=== PATIENT | male | born 1995 | race African-American/Black ===

== ENCOUNTER 2017-04-25 10:49 | Inpatient (IN) | payer OTHER ==
[2017-04-25 10:57] VITALS: BMI 25.0
--- NOTE | 2017-04-25 11:51 | PDOC ---
History of Present Illness - General Chief Complaint: Abscess Boil Stated Complaint: LEAKING CYST Time Seen by Provider: 04/25/17 11:36 History Source: Patient Exam Limitations: No Limitations - History of Present Illness Initial Comments: 04/25/17 12:17 21 yr male history of sickle cell disease with tender abscess to the right outer calf for 1 week getting larger and more painful. Pt was seen at urgent care and placed on keflex and bactrim. Pt on day 3 of bactrim, with no improvement. area is warm, tender and swollen. no fever no chills denies history of MRSA neg nausea. PMD: [facility]. 04/25/17 12:40 04/25/17 12:56 Severity: Yes: moderate Location: reports: extremities (right lateral calf ) Past History - Past Medical History Allergies/Adverse Reactions: Allergies Allergy/AdvReac Type Severity Reaction Status Date / Time No Known Allergies Allergy Verified 04/25/17 10:57 Home Medications: Ambulatory Orders Ibuprofen [Motrin -] 600 mg PO QID PRN 04/25/17 Sulfamethoxazole/Trimethoprim [Bactrim Ds -] 1 tab PO BID 04/25/17 Anemia: Yes (sickel cell) COPD: No - Suicide/Smoking/Psychosocial Hx Smoking History: Current some day smoker Number of Cigarettes Smoked Daily: 1 Information on smoking cessation initiated: No Substance Use Type: Marijuana *Physical Exam - Vital Signs Last Vital Signs Temp Pulse Resp BP Pulse Ox 98.1 F 66 18 133/71 100 04/25/17 10:52 04/25/17 10:52 04/25/17 10:52 04/25/17 10:52 04/25/17 10:52 - Physical Exam General Appearance: Yes: Nourished, Appropriately Dressed HEENT: positive: EOMI, ESTUARDO Neck: negative: Tender Respiratory/Chest: positive: Lungs Clear, Normal Breath Sounds. negative: Chest Tender Gastrointestinal/Abdominal: positive: Normal Bowel Sounds, Soft Extremity: positive: Normal Capillary Refill, Normal Range of Motion, Tender, Swelling, Inflammation (right lateral calf with indurated 3sgr5po abscess with 1cm open oozing red wound in the center, surrounding warmth ) Integumentary: positive: Dry Neurologic: positive: Fully Oriented, Alert, Normal Mood/Affect, Normal Response , Motor Strength 5/5 ED Treatment Course - LABORATORY CBC & Chemistry Diagram: 04/25/17 12:50 04/25/17 12:50 Medical Decision Making - Medical Decision Making 04/25/17 12:27 cc: abscess/wound to right lower leg for one week on keflex and bactrim with no improvement, getting worse no fever no chills no history of MRSA or previous abscess pt states the area started as "three adkins pimples" one week ago and has progressivley got worse will check labs, toradol for pain , IVAB pt with history of SCD , failed outpatient antibiotics will admit for IVAb possible surgical consult (US of leg to r/o abscess) case discussed with ER attending who agrees with plan of treatment 04/25/17 12:56 04/25/17 13:58 US reviewed no abscess collection will admit to hospitalist for failed outpatient therapy, sickle cell disease microblog done to hospitalist 04/25/17 14:27 *DC/Admit/Observation/Transfer Diagnosis at time of Disposition: Cellulitis and abscess of leg - Discharge Dispostion Condition at time of disposition: Good Admit: Yes - Referrals - Patient Instructions - Post Discharge Activity
[2017-04-25] MEDS ORDERED: KETOROLAC TROMETHAMINE 30 MG/1 ML VIAL IVPUSH ONE (12:29)
[2017-04-25] MEDS ORDERED: KETOROLAC TROMETHAMINE 30 MG/1 ML VIAL ONE (12:44)
[2017-04-25] MEDS ORDERED: VANCOMYCIN 1,000 MG in DEXTROSE 5%-WATER - 250 ML IVPB ONE (12:55)
[2017-04-25 13:02] LABS: BASO % 0.4 % (0-2.0); EOS % 4.7 % (0-4.5); HEMATOCRIT 39.2 % (35.4-49); HEMOGLOBIN 12.6 GM/dL (11.7-16.9); LYMPH % 16.2 % (8-40); MCH 23.2 pg (25.7-33.7); MCHC 32.1 g/dl (32.0-35.9); MEAN CELL VOLUME 72.3 fl (80-96); MEAN PLT VOLUME 11.4 fl (7.5-11.1); MONO % 5.4 % (3.8-10.2); NEUT % 73.3 % (42.8-82.8); PLATELET COUNT 150 K/MM3 (134-434); RBC 5.43 M/mm3 (4.00-5.60); RDW 17.1 % (11.9-15.9); WHITE BLOOD COUNT 8.3 K/mm3 (4.0-10.0)
[2017-04-25] MEDS ORDERED: VANCOMYCIN 1 GRAM (PRE-DOCKED) 1,000 MG/250 ML BAG IVPB ONE (13:10)
[2017-04-25 13:29] LABS: ALBUMIN 4.2 g/dl (3.4-5.0); ALK PHOS 50 U/L (45-117); ANION GAP 5 (8-16); BILIRUBIN,TOTAL 0.6 mg/dL (0.2-1.0); BLOOD UREA NITROGEN 8 mg/dL (7-18); CALCIUM 9.2 mg/dL (8.5-10.1); CHLORIDE 108 mmol/L (98-107); CO2 29 mmol/L (21-32); CREATININE 1.1 mg/dL (0.7-1.3); GLUCOSE,RANDOM 78 mg/dL (74-106); POTASSIUM 4.9 mmol/L (3.5-5.1); SGOT/AST 26 U/L (15-37); SGPT/ALT 26 U/L (12-78); SODIUM 142 mmol/L (136-145); TOT PROT 6.8 g/dl (6.4-8.2)
--- NOTE | 2017-04-25 14:27 | HP ---
CHIEF COMPLAINT: R calf abscess PCP: [facility] HISTORY OF PRESENT ILLNESS: 21 yo man w/ pmh of sickle cell disease who presents with worsening, painful abscess of R lateral calf of one week duration. Pt states he first noted a small pimple on the lateral aspect of his R calf one week ago. Pt endorses worsening local edema and tenderness in the area and went to urgent care, where he was diagnosed with suspected cellulitis and started on keflex. Pt endorses continued worsening of inflammation and swelling focally and returned to urgent care where he was started on Bactrim. Pt endorses no improvement and over the next day, w/ worsening local pain and swelling. Per patient, wound began draining bloody exudate due to friction from his pants while at work yesterday. Pt presented to ED due to no improvement on oral abx. He denies local trauma to area, prior hx of skin/soft tissue infections and no other rashes or skin lesions. Denies fever/chills, cough, SOB, CP, Ab pain, diarrhea, dysuria, throat pain, nasal congestion, peripheral numbness and weakness. No sick contacts. No recent hospitalizations. Pt recently sick in February 2017 with flu. ER course was notable for: (1)No fever, WBC (2)Wound cultures sent (3)Vanco x1 Recent Travel: None PAST MEDICAL HISTORY: Sickle cell anemia; no documentation, per patient; Most recent crisis in fall of last years, presents with BL leg pain; has never received blood transfusion; PAST SURGICAL HISTORY: Umbilical hernia reduction Social History: Smoking: Current smoker, intermittent; smoke 1 cigarettes per day on average Alcohol: Socially Drugs: Marijuana Family History: Father with asthma, SS trait; mother with SS trait; Grandmother with unspecific kidney dz; two siblings with SS trait, one with SS dz Allergies No Known Allergies Allergy (Verified 04/25/17 10:57) HOME MEDICATIONS: Home Medications Medication Instructions Recorded Ibuprofen [Motrin -] 600 mg PO QID PRN 04/25/17 Sulfamethoxazole/Trimethoprim 1 tab PO BID 04/25/17 [Bactrim Ds -] REVIEW OF SYSTEMS CONSTITUTIONAL: Absent: fever, chills, diaphoresis, generalized weakness, malaise, loss of appetite, weight change HEENT: Absent: rhinorrhea, nasal congestion, throat pain, throat swelling, difficulty swallowing, mouth swelling, ear pain, eye pain, visual changes CARDIOVASCULAR: Absent: chest pain, syncope, palpitations, irregular heart rate, lightheadedness , peripheral edema RESPIRATORY: Absent: cough, shortness of breath, dyspnea with exertion, orthopnea, wheezing, stridor, hemoptysis GASTROINTESTINAL: Absent: abdominal pain, abdominal distension, nausea, vomiting, diarrhea, constipation, melena, hematochezia GENITOURINARY: Absent: dysuria, frequency, urgency, hesitancy, hematuria, flank pain, genital pain MUSCULOSKELETAL: Absent: myalgia, arthralgia, joint swelling, back pain, neck pain SKIN: Abscess on R calf Absent: rash, itching, pallor HEMATOLOGIC/IMMUNOLOGIC: Absent: easy bleeding, easy bruising, lymphadenopathy, frequent infections ENDOCRINE: Absent: unexplained weight gain, unexplained weight loss, heat intolerance, cold intolerance NEUROLOGIC: Absent: headache, focal weakness or paresthesias, dizziness, unsteady gait, seizure, mental status changes, bladder or bowel incontinence PSYCHIATRIC: Absent: anxiety, depression, suicidal or homicidal ideation, hallucinations. PHYSICAL EXAMINATION Vital Signs - 24 hr 04/25/17 10:52 Temperature 98.1 F Pulse Rate 66 Respiratory 18 Rate Blood Pressure 133/71 O2 Sat by Pulse 100 Oximetry (%) GENERAL: Young man, Awake, alert, and fully oriented, in no acute distress. HEAD: Normal with no signs of trauma. EYES: Pupils equal, round and reactive to light, extraocular movements intact, sclera anicteric, conjunctiva clear. No lid lag. EARS, NOSE, THROAT: Ears normal, nares patent, oropharynx clear without exudates. Moist mucous membranes. NECK: Normal range of motion, supple without lymphadenopathy, JVD, or masses. LUNGS: Breath sounds equal, clear to auscultation bilaterally. No wheezes, and no crackles. No accessory muscle use. HEART: Regular rate and rhythm, normal S1 and S2 without murmur, rub or gallop. ABDOMEN: Soft, nontender, not distended, normoactive bowel sounds, no guarding, no rebound, no masses. MUSCULOSKELETAL: No bony deformities or tenderness. No CVA tenderness. UPPER EXTREMITIES: 2+ pulses, warm, well-perfused. No cyanosis. No clubbing. No peripheral edema. No lesions or rashes appreciated. LOWER EXTREMITIES: 4x4 cm indurated lesion on lateral aspect of mid-calf w/ central open ulcer, with hematogenous/purulent base. Mild tender to palpation along ventral aspect. No significant drainage or purulence noted. No area of fluctuance appreciable. 2+ pulses, warm, well-perfused. NEUROLOGICAL: Cranial nerves II-XII intact. Normal speech. Gait not evaluated. 5/5 strength grossly in all extremities. No sensory deficits noted in all 4 extremities. PSYCHIATRIC: Cooperative. Good eye contact. Appropriate mood and affect. SKIN: Warm, dry, normal turgor, normal capillary refill. R lateral calf lesions as noted above. No other lesions appreciated. Laboratory Results - last 24 hr CBC, BMP 04/25/17 12:50 04/25/17 12:50 04/25/17 04/25/17 12:50 12:50 WBC 8.3 RBC 5.43 Hgb 12.6 Hct 39.2 MCV 72.3 L MCH 23.2 L MCHC 32.1 RDW 17.1 H Plt Count 150 MPV 11.4 H Neutrophils % 73.3 Lymphocytes % 16.2 Monocytes % 5.4 Eosinophils % 4.7 H Basophils % 0.4 Sodium 142 Potassium 4.9 Chloride 108 H Carbon Dioxide 29 Anion Gap 5 L BUN 8 Creatinine 1.1 Creat Clearance w eGFR > 60 Random Glucose 78 Calcium 9.2 Total Bilirubin 0.6 AST 26 ALT 26 Alkaline Phosphatase 50 Total Protein 6.8 Albumin 4.2 Wound, blood cultures pending R Leg U/S 04/25 - Impression: Heterogeneous echotexture in the subcutaneous fat of the right lower leg as described above may be phlegmon. No evidence of abscess/drainable collection at this time. ASSESSMENT/PLAN: 21 yo man w/ pmh of sickle cell disease who presents with worsening, painful abscess of R lateral calf of one week duration. #R calf cellulitis/abscess - No wbc count, fevers; no evidence of fluid collection on u/s; gram stain of wound + for gram positive cocci in clusters - f/u wound cultures, blood cultures - Unasyn IV 1.5 mg q6h and clindamycin 600mg IV q8h - Toradol IV q6h for pain control - If lesion worsens with evidence of abscess foramtion, consult general surgery , ID - Trend WBC, fever curve - PO hydration - Vitals q4h #Sickle Cell dz - Mother, Father carriers per pt - Daily CBC - not currently in active crisis - outpt management #nicotine abuse - counseling regarding smoking cessation PPX HSQ Early ambulation FEN PO hydration Daily BMPs Regular diet Plan to be discussed with attending, Dr. Jimena Gerardo, PGY1 Visit type - Emergency Visit Emergency Visit: Yes ED Registration Date: 04/25/17 Care time: The patient presented to the Emergency Department on the above date and was hospitalized for further evaluation of their emergent condition. - New Patient This patient is new to me today: Yes Date on this admission: 04/25/17 - Critical Care Critical Care patient: No
--- NOTE | 2017-04-25 15:59 | PN ---
Teaching Attending Note Name of Resident: Ephraim Gerardo ATTENDING PHYSICIAN STATEMENT I saw and evaluated the patient. I reviewed the resident's note and discussed the case with the resident. I agree with the resident's findings and plan as documented. SUBJECTIVE:21 yo M with H sickle cell disease/trait presenting with worsening RLE infection. started out as a pimple on the leg that progressively worsened and started draining. he went to urgent care center and started on keflex which he took for a week. it did not full resolve and was started on bactrim 3 days ago. states the redness and swelling went down but was more painful today at work which prompted him to the Er. denies CP, SOB, fever, chills, rigors, N/V/C/ D, denies any trauma to the leg, denies manipulating the area at all or sticking something into the lesion to drain it. no previous episodes, does not shave his legs. was hospitalized once in the past for leg cramps OBJECTIVE: Last Vital Signs Temp Pulse Resp BP Pulse Ox 98.5 F 56 L 16 129/71 100 04/25/17 15:13 04/25/17 15:13 04/25/17 15:13 04/25/17 15:13 04/25/17 15:13 General NAD CV S1 S2 RRR no murmur/rub/gallop Lungs CTA B/L no wheezing/rales/rhonchi Abdomen soft NT/ND Extremities RLE 1cm ulcer with serous drainage, no fluctuance, no erythema or warmth. some pedal edema ASSESSMENT AND PLAN: 21 yo m with PMH sickle cell disease/trait with RLE infection 1. RLE celullitis- failed outpatient treatment. no signs of sepsis. no signs of abscess. will start clindamycin and unasyn. warm compreses. check A1c. Send WCx and BCx. pain control with tramadol. 2. Elevated RDW- check iron studies 3. sickle cell trait vs disease- states he has disease. not anemic here. 4. DVT ppx- hep sq
[2017-04-25] MEDS: CLINDAMYCIN 600MG PREMIX IVPB 600 MG/50 ML BAG IVPB SCH (17:20)
[2017-04-25] MEDS: AMPICILLIN NA/SULBACTAM NA 1.5 GM in SODIUM CHLORIDE 100 ML IVPB SCH (22:00)
[2017-04-25] MEDS: HEPARIN NA (PORCINE) 5,000 UNITS/ML 1ML VIAL SQ SCH (22:36)
[2017-04-26] MEDS: CLINDAMYCIN 600MG PREMIX IVPB 600 MG/50 ML BAG IVPB SCH ×3 (01:20→17:14)
[2017-04-26] MEDS: AMPICILLIN NA/SULBACTAM NA 1.5 GM in SODIUM CHLORIDE 100 ML IVPB SCH ×4 (02:23→21:07)
[2017-04-26] MEDS: HEPARIN NA (PORCINE) 5,000 UNITS/ML 1ML VIAL SQ SCH ×3 (06:10→21:07)
[2017-04-26 08:35] LABS: INR 1.25 (0.82-1.09); PROTHROMBIN TIME (PATIENT) 14.1 SEC (9.98-11.88)
[2017-04-26 08:59] LABS: BASO % 0.4 % (0-2.0); EOS % 8.6 % (0-4.5); HEMOGLOBIN 12.8 GM/dL (11.7-16.9); LYMPH % 25.5 % (8-40); MCH 23.3 pg (25.7-33.7); MCHC 32.8 g/dl (32.0-35.9); MEAN CELL VOLUME 71.2 fl (80-96); MONO % 6.1 % (3.8-10.2); NEUT % 59.4 % (42.8-82.8); PLATELET COUNT 134 K/MM3 (134-434); RBC 5.48 M/mm3 (4.00-5.60); RDW 17.6 % (11.9-15.9); WHITE BLOOD COUNT 6.2 K/mm3 (4.0-10.0)
[2017-04-26 09:02] LABS: CHLORIDE 110 mmol/L (98-107); POTASSIUM 4.1 mmol/L (3.5-5.1); SODIUM 143 mmol/L (136-145)
[2017-04-26 09:15] LABS: ALBUMIN 3.9 g/dl (3.4-5.0); ALK PHOS 46 U/L (45-117); ANION GAP 8 (8-16); BILIRUBIN,TOTAL 0.8 mg/dL (0.2-1.0); BLOOD UREA NITROGEN 12 mg/dL (7-18); CALCIUM 8.3 mg/dL (8.5-10.1); CO2 25 mmol/L (21-32); CREATININE 1.2 mg/dL (0.7-1.3); GLUCOSE,RANDOM 81 mg/dL (74-106); SGOT/AST 17 U/L (15-37); SGPT/ALT 23 U/L (12-78); TOT PROT 6.3 g/dl (6.4-8.2)
[2017-04-26] MEDS: KETOROLAC TROMETHAMINE 30 MG/1 ML VIAL IVPUSH PRN ×2 (10:52)
--- NOTE | 2017-04-26 13:47 | PN ---
Teaching Attending Note Name of Resident: Tc Almaguer ATTENDING PHYSICIAN STATEMENT I saw and evaluated the patient. I reviewed the resident's note and discussed the case with the resident. I agree with the resident's findings and plan as documented. SUBJECTIVE:continues to have pain in R leg, but improved with pain medication. states surrounding redness and swelling has improved. denies Cp, SOB, fever, chills, N/V/C/D OBJECTIVE: Last Vital Signs Temp Pulse Resp BP Pulse Ox 98.3 F 70 18 134/76 100 04/26/17 06:03 04/26/17 10:00 04/26/17 10:00 04/26/17 10:00 04/25/17 15:13 General NAD Extremities RLE 1cm ulcer with pus drainage with pressure. no obvious flucuation , some warmth and tenderness. no erythema. some pedal edema ASSESSMENT AND PLAN: 21 yo m with [facility] sickle cell disease/trait with RLE infection 1. RLE celullitis- failed outpatient treatment. no signs of sepsis. On clindamycin and unasyn day 2. warm compreses. pain control with tramadol. f/u Cx 2. Microcytosis- no anemia. iron studies pending 3. sickle cell trait vs disease- states he has disease. not anemic here. 4. DVT ppx- hep sq
--- NOTE | 2017-04-26 16:20 | PN ---
Physical Exam: SUBJECTIVE: Patient seen and examined No acute events overnight. Pt states that right calf pain has decreased, and infection is improving. He has no complaints. OBJECTIVE: Vital Signs Period Temp Pulse Resp BP Sys/Talamantes Pulse Ox Last 24 Hr 98.3 F-98.6 F 50-70 18-21 116-134/57-83 GENERAL: young male, awake, alert, and fully oriented, in no acute distress. HEENT: NC, AT, EOMI LUNGS: Breath sounds equal, clear to auscultation bilaterally, no wheezes, no crackles, no accessory muscle use. HEART: Regular rate and rhythm, S1, S2 without murmur, rub or gallop. ABDOMEN: Soft, nontender, nondistended, normoactive bowel sounds, no guarding, no rebound, no hepatosplenomegaly, no masses. EXTREMITIES: right lateral calf has 3cm x 3cm ulcer draining yellow pus upon expression with surrounding cellulitis. minimally tender to palpation NEUROLOGICAL: Cranial nerves II through XII grossly intact. Normal speech, gait not observed. Laboratory Results - last 24 hr 04/26/17 04/26/17 04/26/17 07:40 07:40 07:40 WBC 6.2 RBC 5.48 Hgb 12.8 Hct 39.0 MCV 71.2 L MCH 23.3 L MCHC 32.8 RDW 17.6 H Plt Count 134 MPV 12.0 H Neutrophils % 59.4 Lymphocytes % 25.5 D Monocytes % 6.1 Eosinophils % 8.6 H D Basophils % 0.4 PT with INR 14.10 H INR 1.25 H Sodium 143 Potassium 4.1 Chloride 110 H Carbon Dioxide 25 Anion Gap 8 BUN 12 D Creatinine 1.2 Creat Clearance w eGFR > 60 Random Glucose 81 Hemoglobin A1c % Calcium 8.3 L Ferritin Total Bilirubin 0.8 D AST 17 D ALT 23 Alkaline Phosphatase 46 Total Protein 6.3 L Albumin 3.9 04/26/17 04/26/17 07:40 07:40 WBC RBC Hgb Hct MCV MCH MCHC RDW Plt Count MPV Neutrophils % Lymphocytes % Monocytes % Eosinophils % Basophils % PT with INR INR Sodium Potassium Chloride Carbon Dioxide Anion Gap BUN Creatinine Creat Clearance w eGFR Random Glucose Hemoglobin A1c % 4.5 L Calcium Ferritin 102.621 Total Bilirubin AST ALT Alkaline Phosphatase Total Protein Albumin Active Medications Generic Name Dose Route Start Last Admin Trade Name Freq PRN Reason Stop Dose Admin Heparin Sodium (Porcine) 5,000 unit 04/25/17 22:00 04/26/17 15:09 Heparin - SQ Not Given TID ROB Clindamycin Phosphate 600 mg in 50 mls @ 100 mls/hr 04/25/17 18:00 04/26/17 09:20 Cleocin 600 Mg Premix Ivpb - IVPB 100 mls/hr Q8H-IV ROB Administration Ampicillin Sodium/Sulbactam 100 mls @ 200 mls/hr 04/25/17 21:00 04/26/17 15: 11 Sodium 1.5 gm/ Sodium Chloride IVPB 200 mls/hr Q6H-IV ROB Administration Ketorolac Tromethamine 30 mg 04/25/17 15:27 04/26/17 10:52 Toradol Injection - IVPUSH 04/30/17 15:26 30 mg Q6H PRN Administration PAIN LEVEL 4 - 6 Microbiology 04/25/17 12:50 Blood - Peripheral Venous Blood Culture - Preliminary NO GROWTH OBTAINED AFTER 24 HOURS, INCUBATION TO CONTINUE FOR 4 DAYS. 04/25/17 12:50 Blood - Peripheral Venous Blood Culture - Preliminary NO GROWTH OBTAINED AFTER 24 HOURS, INCUBATION TO CONTINUE FOR 4 DAYS. 04/25/17 Unknown Abscess Gram Stain - Final 04/25/17 Unknown Abscess Wound Culture - Preliminary Presumptive Mrsa (Pbp2a Pos) ASSESSMENT/PLAN: 21M with hx of questionable sickle cell disease/trait who presents with RLE infection, found to have cellulitis with central ulcer. #RLE cellulitis -failed outpatient treatment with keflex and bactrim. no signs of sepsis -continue clindamycin and unasyn day 2 -warm compresses -pain well controlled with toradol -wound Cx: presumptive MRSA, f/u final result. If same result, will d/c unasyn. -isolation precautions initiated -f/u Bcx -Hgba1c of 4.5, not consistent with DM #Microcytosis -no anemia -f/u iron studies #sickle cell trait vs. disease -states he has disease. not anemic here -outpt f/u #FEN/ppx -po fluids -electrolytes wnl -regular diet -no GI ppx indicated -hep sq #Dispo -awaiting final culture results. Given failure of oral abx therapy before hospital presentation, will give at least 48-72 hours of IV abx before d/c. Case discussed with attending, Dr. Hess. -Tc Almaguer MD PGY1 Visit type - Emergency Visit Emergency Visit: Yes ED Registration Date: 04/25/17 Care time: The patient presented to the Emergency Department on the above date and was hospitalized for further evaluation of their emergent condition. - New Patient This patient is new to me today: Yes Date on this admission: 04/26/17 - Critical Care Critical Care patient: No - Discharge Referral Referred to [facility] Med [facility] No
[2017-04-26] MEDS ORDERED: PT OWN MED DRAWER 7, Y5N ONE (20:56)
[2017-04-27] MEDS: CLINDAMYCIN 600MG PREMIX IVPB 600 MG/50 ML BAG IVPB SCH ×3 (01:19→17:09)
[2017-04-27] MEDS: AMPICILLIN NA/SULBACTAM NA 1.5 GM in SODIUM CHLORIDE 100 ML IVPB SCH ×2 (03:07→10:40)
[2017-04-27] MEDS: HEPARIN NA (PORCINE) 5,000 UNITS/ML 1ML VIAL SQ SCH ×2 (05:31→14:20)
[2017-04-27 06:06] LABS: SERUM IRON SATURATION 30 % (15-55); TOTAL IRON BINDING CAPACITY 212 ug/dL (250-450); UIBC 149 ug/dL (111-343)
[2017-04-27] MEDS ORDERED: IBUPROFEN 600 MG TABLET (FP) PO PRN (07:17)
[2017-04-27] MEDS ORDERED: ACETAMINOPHEN 325 MG TABLET (FP) PO PRN (07:18)
[2017-04-27 07:31] LABS: BASO % 0.7 % (0-2.0); EOS % 6.7 % (0-4.5); HEMATOCRIT 38.6 % (35.4-49); HEMOGLOBIN 12.8 GM/dL (11.7-16.9); LYMPH % 28.7 % (8-40); MCH 23.2 pg (25.7-33.7); MCHC 33.3 g/dl (32.0-35.9); MEAN CELL VOLUME 69.8 fl (80-96); MEAN PLT VOLUME 10.2 fl (7.5-11.1); MONO % 6.9 % (3.8-10.2); PLATELET COUNT 126 K/MM3 (134-434); RBC 5.53 M/mm3 (4.00-5.60); RDW 17.2 % (11.9-15.9); WHITE BLOOD COUNT 5.9 K/mm3 (4.0-10.0)
[2017-04-27 07:52] LABS: ANION GAP 6 (8-16); BLOOD UREA NITROGEN 9 mg/dL (7-18); CALCIUM 9.2 mg/dL (8.5-10.1); CHLORIDE 109 mmol/L (98-107); CO2 28 mmol/L (21-32); CREATININE 1.1 mg/dL (0.7-1.3); GLUCOSE,RANDOM 85 mg/dL (74-106); POTASSIUM 4.6 mmol/L (3.5-5.1); SODIUM 143 mmol/L (136-145)
[2017-04-27] MEDS ORDERED: PT OWN MED DRAWER 7, Y5N ONE (08:27)
--- NOTE | 2017-04-27 08:32 | PN ---
Physical Exam: SUBJECTIVE: Patient seen and examined No acute events overnight. Pt denies any pain in leg, and states that he feels better compared to yesterday. OBJECTIVE: Vital Signs Period Temp Pulse Resp BP Sys/Talamantes Pulse Ox Last 24 Hr 97.7 F-98.9 F 50-70 18-20 120-141/54-90 100 GENERAL: young male, awake, alert, and fully oriented, in no acute distress. HEENT: NC, AT, EOMI LUNGS: Breath sounds equal, clear to auscultation bilaterally, no wheezes, no crackles, no accessory muscle use. HEART: Regular rate and rhythm, S1, S2 without murmur, rub or gallop. ABDOMEN: Soft, nontender, nondistended, normoactive bowel sounds, no guarding, no rebound, no hepatosplenomegaly, no masses. EXTREMITIES: right lateral calf has 3cm x 3cm ulcer draining minimal yellow pus upon expression with surrounding cellulitis. non-tender to palpation NEUROLOGICAL: Cranial nerves II through XII grossly intact. Normal speech, gait not observed. Laboratory Results - last 24 hr 04/26/17 04/26/17 04/26/17 07:40 07:40 07:40 WBC 6.2 RBC 5.48 Hgb 12.8 Hct 39.0 MCV 71.2 L MCH 23.3 L MCHC 32.8 RDW 17.6 H Plt Count 134 MPV 12.0 H Neutrophils % 59.4 Lymphocytes % 25.5 D Monocytes % 6.1 Eosinophils % 8.6 H D Basophils % 0.4 PT with INR 14.10 H INR 1.25 H Sodium 143 Potassium 4.1 Chloride 110 H Carbon Dioxide 25 Anion Gap 8 BUN 12 D Creatinine 1.2 Creat Clearance w eGFR > 60 Random Glucose 81 Hemoglobin A1c % Calcium 8.3 L Iron TIBC Iron Saturation Ferritin Total Bilirubin 0.8 D AST 17 D ALT 23 Alkaline Phosphatase 46 Total Protein 6.3 L Albumin 3.9 04/26/17 04/26/17 04/26/17 07:40 07:40 07:40 WBC RBC Hgb Hct MCV MCH MCHC RDW Plt Count MPV Neutrophils % Lymphocytes % Monocytes % Eosinophils % Basophils % PT with INR INR Sodium Potassium Chloride Carbon Dioxide Anion Gap BUN Creatinine Creat Clearance w eGFR Random Glucose Hemoglobin A1c % 4.5 L Calcium Iron 63 TIBC 212 L Iron Saturation 30 Ferritin 102.621 Total Bilirubin AST ALT Alkaline Phosphatase Total Protein Albumin 04/27/17 04/27/17 06:40 06:40 WBC 5.9 RBC 5.53 Hgb 12.8 Hct 38.6 MCV 69.8 L MCH 23.2 L MCHC 33.3 RDW 17.2 H Plt Count 126 L MPV 10.2 D Neutrophils % 57.0 Lymphocytes % 28.7 Monocytes % 6.9 Eosinophils % 6.7 H Basophils % 0.7 PT with INR INR Sodium 143 Potassium 4.6 Chloride 109 H Carbon Dioxide 28 Anion Gap 6 L BUN 9 D Creatinine 1.1 Creat Clearance w eGFR Random Glucose 85 Hemoglobin A1c % Calcium 9.2 Iron TIBC Iron Saturation Ferritin Total Bilirubin AST ALT Alkaline Phosphatase Total Protein Albumin Active Medications Generic Name Dose Route Start Last Admin Trade Name Freq PRN Reason Stop Dose Admin Acetaminophen 650 mg 04/27/17 07:18 Tylenol - PO Q6H PRN FEVER Heparin Sodium (Porcine) 5,000 unit 04/25/17 22:00 04/27/17 05:31 Heparin - SQ Not Given TID ROB Clindamycin Phosphate 600 mg in 50 mls @ 100 mls/hr 04/25/17 18:00 04/27/17 01:19 Cleocin 600 Mg Premix Ivpb - IVPB 100 mls/hr Q8H-IV ROB Administration Ampicillin Sodium/Sulbactam 100 mls @ 200 mls/hr 04/25/17 21:00 04/27/17 03: 07 Sodium 1.5 gm/ Sodium Chloride IVPB 200 mls/hr Q6H-IV ROB Administration Ibuprofen 600 mg 04/27/17 07:17 Motrin - PO Q6H PRN FEVER ASSESSMENT/PLAN: 21M with hx of questionable sickle cell disease/trait who presents with RLE infection, found to have cellulitis with central ulcer. #RLE cellulitis- improving -failed outpatient treatment with keflex and bactrim. no signs of sepsis -no wbc count, no fever -continue clindamycin and unasyn (day 3) -warm compresses -pain control: toradol stopped. started motrin PRN -wound Cx: presumptive MRSA, f/u final result. If same result, will d/c unasyn. -isolation precautions -Bcx: no growth x 24h #Microcytosis -no anemia -ferritin: 102- normal -TIBC: 212- low -iron: 63- normal #sickle cell trait vs. disease -states he has disease. not anemic here -outpt f/u #FEN/ppx -po fluids -electrolytes wnl -regular diet -no GI ppx indicated -hep sq #Dispo -awaiting final culture results. Given failure of oral abx therapy before hospital presentation, will give at least 48-72 hours of IV abx before d/c. Case discussed with attending, Dr. Cherry. -Tc Almaguer MD PGY1 Visit type - Emergency Visit Emergency Visit: Yes ED Registration Date: 04/25/17 Care time: The patient presented to the Emergency Department on the above date and was hospitalized for further evaluation of their emergent condition. - New Patient This patient is new to me today: No - Critical Care Critical Care patient: No
[2017-04-27 11:19] VITALS: BP 120/70
[2017-04-27] MEDS ORDERED: LACTOBACILLUS ACIDOPHILUS 1 EACH TAB (FP) PO SCH (12:15)
--- NOTE | 2017-04-27 12:36 | PN ---
Teaching Attending Note Name of Resident: Tc Almaguer ATTENDING PHYSICIAN STATEMENT Time of evaluation: 10:55 AM I saw and evaluated the patient. I reviewed the resident's note and discussed the case with the resident. I agree with the resident's findings and plan as documented. SUBJECTIVE: Patient seen and examined. left leg symptoms improved, no new fevers or chills. OBJECTIVE: Vital Signs Period Temp Pulse Resp BP Sys/Talamantes Pulse Ox Last 24 Hr 97.7 F-98.9 F 50-62 18-20 120-141/54-90 100 Intake & Output 04/24/17 04/25/17 04/26/17 04/27/17 23:59 23:59 23:59 23:59 Intake Total 700 1650 250 Balance 700 1650 250 Weight 200 lb General: ambulating in room, no acute distress Extremities: right lateral calf 1 cm superficial ulcer with minimal purulent discharge, surrounding induration with minimal erythema, able to express minimal purulent drainage, minimal tenderness in the area around Active Medications Generic Name Dose Route Start Last Admin Trade Name Freq PRN Reason Stop Dose Admin Acetaminophen 650 mg 04/27/17 07:18 Tylenol - PO Q6H PRN FEVER Heparin Sodium (Porcine) 5,000 unit 04/25/17 22:00 04/27/17 05:31 Heparin - SQ Not Given TID ROB Clindamycin Phosphate 600 mg in 50 mls @ 100 mls/hr 04/25/17 18:00 04/27/17 10:40 Cleocin 600 Mg Premix Ivpb - IVPB 100 mls/hr Q8H-IV ROB Administration Ibuprofen 600 mg 04/27/17 07:17 Motrin - PO Q6H PRN FEVER Lactobacillus Acidophilus 1 tab 04/27/17 12:15 Bacid - PO DAILY ROB Laboratory Results - last 24 hr 04/26/17 04/27/17 04/27/17 07:40 06:40 06:40 WBC 5.9 RBC 5.53 Hgb 12.8 Hct 38.6 MCV 69.8 L MCH 23.2 L MCHC 33.3 RDW 17.2 H Plt Count 126 L MPV 10.2 D Neutrophils % 57.0 Lymphocytes % 28.7 Monocytes % 6.9 Eosinophils % 6.7 H Basophils % 0.7 Sodium 143 Potassium 4.6 Chloride 109 H Carbon Dioxide 28 Anion Gap 6 L BUN 9 D Creatinine 1.1 Random Glucose 85 Calcium 9.2 Iron 63 TIBC 212 L Iron Saturation 30 Microbiology 04/25/17 Unknown Abscess Gram Stain - Final 04/25/17 Unknown Abscess Wound Culture - Final S Aureus 04/25/17 12:50 Blood - Peripheral Venous Blood Culture - Preliminary NO GROWTH OBTAINED AFTER 24 HOURS, INCUBATION TO CONTINUE FOR 4 DAYS. 04/25/17 12:50 Blood - Peripheral Venous Blood Culture - Preliminary NO GROWTH OBTAINED AFTER 24 HOURS, INCUBATION TO CONTINUE FOR 4 DAYS. ASSESSMENT AND PLAN: 21 yom with PMhx of sickle cell disease, admitted with Right LE MRSA abscess s/ p spontaneous drainage. -RLE MRSA abscess s/p spontaneous drainage. -Sickle cell disease Plan: Wound cultures with MRSA. still with some induration and purlent drainage when expressed. Surgery input from Dr. Torres if I&D indicated. Unasyn/clindamycin day 3, transition to clindamycin on d/c pending surgical recs. Anticipate d/c later today pending surgery recs. Plan discussed with patient in detail, all questions answered.
[2017-04-27] MEDS ORDERED: COLLAGENASE CLOSTRIDIUM HIST. 30 GRAMS TUBE TP SCH (15:15)
[2017-04-27 15:19] VITALS: PULSE 59; TEMP 98.2
--- NOTE | 2017-04-27 15:29 | PN ---
Progress Note (short form) - Note Progress Note: General Surgery: Pt states that overall his pain and firmness to the right lower leg has improved. Originally he was seen and treated in an urgent care for an infection to his RLE. He denies any trauma and says that it stated out as a pimple. He first received oral keflex x 1day, returned to the ER and was placed on bactrim. He took this x2 days and came to the ER for evaluation. He has been admitted since Wednesday and receiving IV abx, clinidamyacin/unasyn. Vital Signs Period Temp Pulse Resp BP Sys/Talamantes Pulse Ox Last 24 Hr 97.7 F-98.9 F 51-62 18-20 120-141/54-90 100 PMHX: sickle cell PE: GEN: appear well, NAD RLE: no erythema or drainage noted. 1.8 x 1.8 wound to the RLE(lateral aspect/ mid calf) no surrounding induration, necrotic tissue in center with granulation tissue at the edges. tenderness with palpation of the wound, but no surrounding skin. CBC, BMP 04/27/17 06:40 04/27/17 06:40 Microbiology 04/25/17 Unknown Abscess Gram Stain - Final 04/25/17 Unknown Abscess Wound Culture - Final Mr S Aureus US-03/25 3 x 0.8 x 3 cm heterogenous echotexture SQ fat, no colleciton noted Problem List - Problems (1) Cellulitis and abscess of leg Assessment/Plan: PT with failed outpt oral antibtiotic, now clinically improved cellulitis after IV treatment. MRSA positive culture. RLE wound appears to be healing with mild amount of slough/necrotic tissue in base. Draining minimally without surrounding erythema. Recommend local wound care with santyl/wet to dry and daily showers. I spoke with Dr. Torres and recommend to have the patient f/u in wound clinic for a wound check next week. He was instructed on local wound care and his discharge instructions are complete. He should monitor for worsening infection/pain, fevers or drainage and return to the ER for urgent conditions. Otherwise Elle Torres can see him next week in his office. Code(s): L03.119 - CELLULITIS OF UNSPECIFIED PART OF LIMB; L02.419 - CUTANEOUS ABSCESS OF LIMB, UNSPECIFIED
--- NOTE | 2017-04-27 16:35 | DS ---
Physical Exam: SUBJECTIVE: Patient seen and examined No acute events overnight. Pt denies any pain in leg, and states that he feels better compared to yesterday. OBJECTIVE: Vital Signs Period Temp Pulse Resp BP Sys/Talamantes Pulse Ox Last 24 Hr 97.7 F-98.9 F 51-62 18-20 120-141/54-90 100 PHYSICAL EXAM GENERAL: young male, awake, alert, and fully oriented, in no acute distress. HEENT: NC, AT, EOMI LUNGS: Breath sounds equal, clear to auscultation bilaterally, no wheezes, no crackles, no accessory muscle use. HEART: Regular rate and rhythm, S1, S2 without murmur, rub or gallop. ABDOMEN: Soft, nontender, nondistended, normoactive bowel sounds, no guarding, no rebound, no hepatosplenomegaly, no masses. EXTREMITIES: right lateral calf has 3cm x 3cm ulcer draining minimal yellow pus upon expression with surrounding cellulitis. non-tender to palpation NEUROLOGICAL: Cranial nerves II through XII grossly intact. Normal speech, gait not observed. LABS Laboratory Results - last 24 hr 04/26/17 04/27/17 04/27/17 07:40 06:40 06:40 WBC 5.9 RBC 5.53 Hgb 12.8 Hct 38.6 MCV 69.8 L MCH 23.2 L MCHC 33.3 RDW 17.2 H Plt Count 126 L MPV 10.2 D Neutrophils % 57.0 Lymphocytes % 28.7 Monocytes % 6.9 Eosinophils % 6.7 H Basophils % 0.7 Sodium 143 Potassium 4.6 Chloride 109 H Carbon Dioxide 28 Anion Gap 6 L BUN 9 D Creatinine 1.1 Random Glucose 85 Calcium 9.2 Iron 63 TIBC 212 L Iron Saturation 30 Microbiology 04/25/17 12:50 Blood - Peripheral Venous Blood Culture - Preliminary NO GROWTH OBTAINED AFTER 48 HOURS, INCUBATION TO CONTINUE FOR 3 DAYS. 04/25/17 12:50 Blood - Peripheral Venous Blood Culture - Preliminary NO GROWTH OBTAINED AFTER 48 HOURS, INCUBATION TO CONTINUE FOR 3 DAYS. 04/25/17 Unknown Abscess Gram Stain - Final 04/25/17 Unknown Abscess Wound Culture - Final Mr S Aureus US LE: heterogeneous exhotexture in subcutaneous fat of RLL, may be phlegmon. No evidence of abscess. HOSPITAL COURSE: Date of Admission:04/25/17 Date of Discharge: 04/27/17 21M with hx of questionable sickle cell disease/trait who presents with RLE infection after failing a course of keflex as outpt, found to have cellulitis with central ulcer. His cellulitis was treated with IV clindamycin and unasyn, until the cultures demonstrated that MRSA was growing. Unasyn was discontinued. Pt was also treated with warm compresses and pain control. Pt never mounted a leukocytosis or fever. His ulcer decreased in size and amount of pustular drainage. Pt was seen by surgery who stated that pt could be discharged and seen as an outpt. Today, pt has no complaints, has normal vitals, an improving physical exam, normal labs, and is ready for discharge. Pt instructed to f/u with his PCP and surgery in one week, and to finish course of clindamycin, take bacid, and to place santyl and wet/dry bandages over the ulcer. -Tc Almaguer MD PGY1 Minutes to complete discharge: 35 Discharge Summary Reason For Visit: CELLULITIS AND ABCESS OF LOWER EXTERMITY Current Active Problems Cellulitis and abscess of leg (Acute) Condition: Stable - Instructions Diet, Activity, Other Instructions: You developed an infection of the skin on your leg. The cultures of the infected skin grew MRSA, and you were treated with IV antibiotics. Medications: 1. Please take clindamycin 300mg four times a day for 7 more days. 2. Please take lactobacillus, one tablet once a day, to help regulate your bowel motility while on the antibiotics. 3. Apply santyl dressing daily to your wound and cover with a wet and dry dressing. Follow-ups: 1. Please see your PCP within one week to ensure resolution of the infection. If you don't have one, we have referred you to Dr. Terry's office. Please see Dr. Blank. 2. Follow up next week with Dr. Torres in his office on Wednesday, please call to schedule an appointment. You may shower, keep area clean and covered. Apply santyl dressing daily to your wound and cover with a wet and dry dressing. If you develop any worsening symptoms such as increase in size of the infection or drainage of pus, fever, chills, or any other concerning symptoms, return to the ED. You are advised rest and avoid work till your wound has completely healed. recommend follow up with your doctor and surgeon in 1 week as advised and resume work as directed by them. Referrals: Jovan Terry MD [Staff Physician] - 1 Week (Please see Dr. Blank.) Scotty Torres MD [Staff Physician] - Disposition: HOME - Home Medications Comprehensive Discharge Medication List: Ambulatory Orders Clindamycin [Cleocin -] 300 mg PO Q6HPO #29 capsule 04/27/17 Collagenase Clostridium Hist. [Santyl -] 1 applic TP DAILY 8 Days #1 tube Gauze Bandage [Gauze] 1 each TP DAILY #1 bandage 04/27/17 Lactobacillus Acidophilus [Bacid -] 1 tab PO DAILY #30 tab 04/27/17 This patient is new to me today: No Emergency Visit: Yes ED Registration Date: 04/25/17 Care time: The patient presented to the Emergency Department on the above date and was hospitalized for further evaluation of their emergent condition. Critical Care patient: No - Discharge Referral Referred to [facility] Med P.C.: No
== END 2017-04-27 18:52 | disposition home or self-care (01) | DRG 603 ==
LOC: JER 10:49 → JERFT 10:49 → JERBED 14:29 → J6S 15:43
PROVIDERS: ADMIT Internal Medicine; ATTEND Hospitalist
DX: L03.115 Cellulitis of right lower limb (principal); D57.1 Sickle-cell disease without crisis
CPT/HCPCS: 36415; 76882; 80048; 80053; 82728; 83036; 83540; 83550; 85025; 85610; 87040; 87070; 87186; 87205; 99283-25; J1644